=== PATIENT | male | born 1955 | race Caucasian/White ===

== ENCOUNTER 2021-10-26 19:42 | Emergency (ER) | payer MEDICARE, BC, SELFPAY ==
[2021-10-26 19:44] VITALS: BP 77/50; PULSE 43; RESP 19; TEMP 36.5; O2SAT 98; BMI 25.5
--- NOTE | 2021-10-26 19:51 | ED.RN ---
ECG IN PROGRESS
[2021-10-26 20:11] VITALS: BP 82/43; PULSE 41; RESP 20; O2SAT 97
--- NOTE | 2021-10-26 20:13 | CT_ITS ---
INDICATION: TRAUMA EXAMINATION: CT BRAIN - CT Head or Brain W/O Contrast Injection TECHNIQUE: Multiple axial images were obtained of the head without intravenous contrast. A radiation dose optimization technique was used for this scan. IV Contrast dosage and agent: None. RADIATION DOSAGE (If Supplied By Facility): CTDIvol = ( 44.99 ) mGy, DLP = ( 931.09 ) mGycm COMPARISON: None FINDINGS: HEMISPHERES: 1. There is severe hydrocephalus with enlargement of the lateral ventricles, third ventricle, cerebral aqueduct and fourth ventricle. No obstructing masses. No transependymal CSF migration however chronic thinning of the hemispheric parenchyma in the parietal and occipital lobes bilaterally. 2. 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 3. No intraparenchymal mass, hemorrhage, or acute territorial infarct. No areas of intra-axial intraventricular or extra-axial hemorrhage.. 4. No intraparenchymal mass, hemorrhage, or acute territorial infarct. CEREBELLUM - BRAINSTEM: The cerebellum, brainstem, basilar and suprasellar cisterns have normal configuration, prominence/dilatation of the fourth ventricle noted. No Chiari malformation. PITUITARY: Infundibulum and pituitary have normal configuration. Midline structures appear normal. CSF SPACES: Appropriate for age. No hydrocephalus. Basal cisterns are patent. VESSELS: 1. Moderate to extensive vascular calcifications in the cavernous carotid vessels. 2. No hyperdense vascular signs noted.. ORBITS AND PARANASAL SINUSES: 1. Normal appearance of the bony orbits. Normal appearance of the globes and retrobulbar soft tissues.. 2. Paranasal sinuses are clear. BONY ELEMENTS: Bony elements of the cranial vault, facial skeleton and skull base have normal appearance. SCALP AND SOFT TISSUES: Normal appearance of the soft tissues of the scalp and the visualized face OTHER: None ASPECTS Score for Acute Strokes: 10 CT/Brain/Head without Contrast IMPRESSION: 1. Marked supratentorial and infratentorial ventriculomegaly consistent with a chronic compensated communicating hydrocephalus. No transependymal CSF migration noted. 2. 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 3. No mass, hemorrhage, or acute territorial infarct. 4. No intracranial evidence of acute traumatic injury. 5. No cranial facial fractures noted. Electronically Signed: Ebenezer Tafoya MD at 21:00 EDT ,
--- NOTE | 2021-10-26 20:13 | EKG12_ITS ---
Test Reason : unresponsive Blood Pressure : / mmHG Vent. Rate : 043 BPM Atrial Rate : 043 BPM P-R Int : 192 ms QRS Dur : 106 ms QT Int : 526 ms P-R-T Axes : 057 063 061 degrees QTc Int : 444 ms Marked sinus bradycardia Abnormal ECG Confirmed by CLAUDIA CHASE, ROBERTO ([id number]), magazine editor MT GRAYSON ([id number]) on 10/28/2021 2:04:24 PM Referred By: Confirmed By:ROBERTO TAYLOR MD
--- NOTE | 2021-10-26 20:13 | CT_ITS ---
INDICATION: TRAUMA EXAMINATION: CT CERVICAL SPINE - CT Spine Cervical W/O Contrast Injection TECHNIQUE: Helically acquired images were obtained of the cervical spine. 2D reformatted images were reviewed. A radiation dose optimization technique was used for this scan. IV Contrast dosage and agent: None. COMPARISON: None. FINDINGS: VERTEBRAE: Vertebral body height and alignment are maintained, marginal osteophyte formation throughout the cervical spine without evidence of fracture or subluxation. Normal appearance the odontoid process and alignment of the craniocervical junction. DISCS and SPINAL CANAL: Mild disc space narrowing marginal osteophyte formation throughout cervical spine, no evidence of acute disc herniations however. There is significant chronic narrowing of the spinal canal at the C3-4 level which appears to be narrowed to approximately 5 mm. Broad-based disc bulges and chronic protrusions at remaining levels. Multilevel foraminal narrowing due to facet and uncovertebral joint hypertrophic changes. No acute bony changes however noted. NECK SOFT TISSUES: No prevertebral soft tissue swelling. There is no cervical adenopathy. LUNG APICES: Clear. CT/Spine Cervical without Contras IMPRESSION: 1. Multilevel cervical spondylosis facet arthrosis and uncovertebral joint hypertrophic changes. Chronic appearing disc bulge/protrusion and osteophytes are noted with areas of chronic canal narrowing. 2. No evidence however of fracture or acutely acquired canal stenosis. 3. Multilevel foraminal narrowing due to chronic facet and uncovertebral joint changes. Electronically Signed: Ebenezer Tafoya MD at 21:11 EDT ,
[2021-10-26] MEDS: 0.9% Normal Saline 1,000 ML 1000 ML IV ×2 (20:15→21:23)
[2021-10-26 20:31] LABS: Bacteria 0 SEEN /hpf (None Seen); Mucous, Urine 0 SEEN /hpf (<or=2+); Red Blood Cells-Urine 0 SEEN /hpf (0-5); Squamous Epithelial Cells - UA 0 SEEN /hpf (0-5); White Blood Cells 0 SEEN /hpf (0-5)
[2021-10-26 20:32] LABS: Absolute Lymphocyte Count 2.96 X10^3/uL (0.83-4.51); Absolute Neutrophil Count 6.8 X10^3/uL (2.0-7.7); Basophil# 0.09 X10^3/uL; Basophil% 0.8 % (0-1); Eosinophil# 0.74 X10^3/uL; Eosinophils% 6.5 % (0-5); Hemoglobin 10.5 g/dL (13.0-16.5); Lymphocyte # 2.96 X10^3/ul (0.83-4.51); Lymphocyte % 25.9 % (19-41); Mean Corp Hgb Conc 33.9 g/dL (32-36); Mean Corpuscular Hgb 30.3 pg (27.0-32.0); Mean Corpuscular Volume 89.6 fL (80-94); Mean Platelet Vol. 9.5 fl (6.2-12.0); Monocyte# 0.82 X10^3/uL; Monocyte% 7.2 % (0-10); NRBC Flagged by Analyzer 0 % (0-5); Neutrophil # 6.78 X10^3/uL (2.7-7.7); Neutrophil % 59.3 % (47-70); Platelet Count 272 K/mm3 (150-450); RBC Distribution Width CV 11.9 % (11.6-14.6); RBC Distribution Width SD 38.8 fl (35.1-43.9); Red Blood Count 3.46 M/mm3 (4.6-6.2); White Blood Count 11.4 K/mm3 (4.4-11.0)
[2021-10-26 20:36] LABS: Color, Urine Yellow (Yellow); Glucose, Dipstick Normal (Normal); Ketone-Dipstick Negative (Negative); Leukocyte Esterase-Dipstick Negative /ul (Negative); Nitrite-Dipstick Negative (Negative); Occult Blood-Urine Negative /ul (Negative); Protein-Dipstick Negative (Negative); Specific Gravity, Urine 1.015 (1.002-1.030); Urine Bilirubin Dipstick Negative (Negative); Urine Clarity Clear (Clear); Urine Urobilinogen Normal (Normal)
--- NOTE | 2021-10-26 20:36 | RAD_ITS ---
INDICATION: TRAUMA EXAMINATION/TECHNIQUE: X-RAY - XR Chest 1 View COMPARISON: None. FINDINGS: LIFE-SUPPORT AND LINES: 1. None HEART AND VESSELS: The cardiac silhouette, pulmonary vasculature have normal appearance. No evidence of congestive failure. LUNGS AND PLEURAL SPACES: Lungs are clear. No focal infiltrate, consolidation or effusions. No evidence of pneumothorax. No pulmonary mass is noted. MEDIASTINUM AND HILAR REGIONS: No masses adenopathy noted. No areas of calcification. Visualized upper airway is normal in position. BONY ELEMENTS: Scoliotic curvature of thoracic spine is noted. RAD/Chest 1 View (Portable) IMPRESSION: 1. No evidence of acute cardiopulmonary process Electronically Signed: Ebenezer Tafoya MD at 20:50 EDT ,
[2021-10-26 20:45] LABS: ALB/GLOB Ratio 1.2 RATIO (0.9-2.4); AST(SGOT) 23 U/L (15-37); Alanine Aminotransfer ALT/SGPT 25 U/L (16-61); Albumin, Serum 3.6 g/dL (3.2-5.0); Alkaline Phosphatase 48 U/L (45-117); Anion Gap 10 (5-15); BUN 15 mg/dL (7-18); BUN/Creat Ratio 15.4 RATIO (10-20); CPK Total, Creatine Kinase 135 U/L (39-308); Calcium,Total 8.5 mg/dL (8.5-10.1); Chloride 93 mmol/L (98-107); Creatinine, Serum 0.97 mg/dL (0.70-1.30); EST Glomerular Filtration Rate 82 mL/min (>60); Est Glom Filt Rate - Afr Amer 99 mL/min (>60); Estimated Creatinine Clearance 70.04 ml/min; Globulin 2.9 g/dL (2.2-4.2); Glucose 92 mg/dL (74-106); International Normalized Ratio 1.1; Potassium 3.3 mmol/L (3.5-5.1); Protein, Total 6.5 g/dL (6.4-8.2); Sodium Level 128 mmol/L (136-145); Troponin-I HS 5 pg/mL (3.0-78.0)
[2021-10-26 20:52] LABS: Lactic Acid 2.3 mmol/L (0.4-1.9)
[2021-10-26 20:53] VITALS: BP 94/54; PULSE 41; RESP 19; O2SAT 100
[2021-10-26 21:50] VITALS: BP 105/60; PULSE 44; RESP 17; O2SAT 99
--- NOTE | 2021-10-26 21:51 | ED.VIS.FALL ---
HPI HPI - Fall History of Present Illness Chief Complaint: Fall Informant: patient and EMS Narrative Narrative: Portably the patient states that he sustained a fall when he tripped in the yard and hit his head on the ground. He was found laying on the ground. EMS notes he was hypotensive and bradycardic. Patient states his head and his neck hurt. He was placed in a c-collar. Patient does not know what his heart rate or blood pressure typically runs. He states that he has no significant medical problems. He notes that he has been drinking beer today. He believes his tetanus is up-to-date. He tells me that his fingertips and toes are tingling. He denies any paresthesias of the hands forearms arms or legs. Denies any loss of sensation. He states he is not on any blood thinners. Tetanus Immunization: 5-10 years PFS PFS Medical History no medical history no medical history Home Medications chlorthalidone 25 mg tablet 1 tab PO DAILY 10/26/21 [History Last Taken Unknown] diclofenac sodium 75 mg tablet,delayed release 1 tab PO BID 10/26/21 [History Last Taken Unknown] losartan 100 mg tablet 1 tab PO DAILY 10/26/21 [History Last Taken Unknown] metoprolol tartrate 100 mg tablet (Lopressor) 100 mg PO BID 10/26/21 [History Last Taken Unknown] simvastatin 40 mg tablet 1 tab PO QHS 10/26/21 [History Last Taken Unknown] spironolactone 50 mg tablet 1 tab PO DAILY 10/26/21 [History Last Taken Unknown] verapamil 120 mg tablet,extended release 120 mg PO DAILY 10/26/21 [History Last Taken Unknown] Allergy/AdvReac Type Severity Reaction Status Date / Time Penicillins [PCN] Allergy NEEDS Verified 10/26/21 19:49 FOLLOW-UP Social History (Updated 10/26/21 @ 21:[address] Neftali Dan, DO) Smoking Status: Former smoker alcohol intake: current substance use type: does not use EXAM Physical Exam Narrative Exam Narrative: Patient smells of stale beer. Const Vital Signs: 10/26/21 19:44 10/26/21 19:51 10/26/21 20:11 Temperature 97.7 F L Temperature Source Temporal Pulse Rate 43 L 41 L Respiratory Rate 19 H 20 H Respiratory Effort Short of Breath Blood Pressure 77/50 L 82/43 L Blood Pressure Mean 59 56 Pulse Ox 98 97 Oxygen Delivery Method Room Air Room Air Room Air 10/26/21 20:53 10/26/21 21:50 Temperature Temperature Source Pulse Rate 41 L 44 L Respiratory Rate 19 H 17 Respiratory Effort Blood Pressure 94/54 L 105/60 Blood Pressure Mean 67 75 Pulse Ox 100 99 Oxygen Delivery Method Room Air Room Air Positive well nourished and well developed General Appearance ED: well developed HEENT Reports normocephalic and moist mucous membranes HEENT Narrative: There is abrasions of the forehead and nose. No bony depressions. Eyes PERRL and EOMs intact bilaterally Neck no lymphadenopathy, supple and no JVD Neck Narrative: She does and cervical spine precaution Resp normal respiratory effort and clear to auscultation bilaterally Cardio regular rate, regular rhythm and no murmurs GI normal to inspection, nondistended, normoactive bowel sounds and non-tender Palpation: soft Back/Spine no CVA tenderness and normal ROM Extremity normal to inspection General Extremety ED: Negative for edema General Extremity: Negative for edema Neuro oriented x3 and CN's II-XII intact bilaterally Neuro Narrative: Patient complains of loss of sensation to light touch and vibration of his extremities trunk and legs. I am able to get him to wiggle his toes and have some movement of his fingers. There is basically no movement against gravity including of the trunk. [place] Coma Scale: document GCS findings Spontaneous Obeys Commands Oriented 15 Sensorium / Orientation: alert Sensory Exam: sensory level loss detected Psych mental status grossly normal Mood & Affect: Negative for depressed or tearful Skin no rashes or lesions noted MDM MDM MDM Narrative Medical decision making narrative: Basic blood work showed a white count 11.4 hemoglobin 10.5. I do not have old labs to compare these to. His sodium is 128 most likely due to beer use. Lactic acid is slightly elevated at 2.3. Urinalysis is negative. Alcohol level 102. CT of the cervical spine shows no acute fracture. CT of the brain demonstrates acute ventriculomegaly consistent with chronic compensated communicating hydrocephalus. Thinning of the brain parenchyma involving the occipital and parietal lobes consistent with chronic compression. No obvious intracranial hemorrhage or fractures noted. Patient received IV fluids. Blood pressures up to 105/60. Patient continued to have neck pain and given Toradol and [place]. He continues to have difficulty with sensation and motor. I worried about a potential spinal cord injury. I spoke with [facility] traumatologist Dr. Ferrell and the patient will be transferred there. Lab Data Attestation: I reviewed the patient's lab results. Labs: Laboratory Results - last 24 hr 10/26/21 10/26/21 10/26/21 20:01 20:01 20:01 WBC 11.4 H RBC 3.46 L Hgb 10.5 L Hct 31.0 L MCV 89.6 MCH 30.3 MCHC 33.9 RDW Std Deviation 38.8 RDW Coeff of Janki 11.9 Plt Count 272 MPV 9.5 Immature Gran % (Auto) 0.300 Neut % (Auto) 59.3 Lymph % (Auto) 25.9 [place] % (Auto) 7.2 Eos % (Auto) 6.5 H Baso % (Auto) 0.8 Absolute Neuts (auto) 6.8 Absolute Lymphs (auto) 2.96 Nucleated RBC % 0 PT 14.0 INR 1.1 APTT 29.0 Sodium 128 L Potassium 3.3 L Chloride 93 L Carbon Dioxide 25.0 Anion Gap 10 BUN 15 Creatinine 0.97 Estim Creat Clear Calc 70.04 Est GFR (MDRD) Af Amer 99 Est GFR (MDRD) Non-Af 82 BUN/Creatinine Ratio 15.4 Glucose 92 Lactic Acid Calcium 8.5 Total Bilirubin 0.40 AST 23 ALT 25 Alkaline Phosphatase 48 Total Creatine Kinase 135 Troponin I High Sens 5 Total Protein 6.5 Albumin 3.6 Globulin 2.9 Albumin/Globulin Ratio 1.2 Urine Color Urine Clarity Urine pH Ur Specific Anchor Urine Protein Urine Glucose (UA) Urine Ketones Urine Occult Blood Urine Nitrite Urine Bilirubin Urine Urobilinogen Ur Leukocyte Esterase Urine RBC Urine WBC Ur Squamous Epith Cells Urine Bacteria Urine Mucus Ethyl Alcohol 10/26/21 10/26/21 10/26/21 20:01 20:01 20:25 WBC RBC Hgb Hct MCV MCH MCHC RDW Std Deviation RDW Coeff of Janki Plt Count MPV Immature Gran % (Auto) Neut % (Auto) Lymph % (Auto) [place] % (Auto) Eos % (Auto) Baso % (Auto) Absolute Neuts (auto) Absolute Lymphs (auto) Nucleated RBC % PT INR APTT Sodium Potassium Chloride Carbon Dioxide Anion Gap BUN Creatinine Estim Creat Clear Calc Est GFR (MDRD) Af Amer Est GFR (MDRD) Non-Af BUN/Creatinine Ratio Glucose Lactic Acid 2.3 H* Calcium Total Bilirubin AST ALT Alkaline Phosphatase Total Creatine Kinase Troponin I High Sens Total Protein Albumin Globulin Albumin/Globulin Ratio Urine Color Yellow Urine Clarity Clear Urine pH 6.0 Ur Specific Anchor 1.015 Urine Protein Negative Urine Glucose (UA) Normal Urine Ketones Negative Urine Occult Blood Negative Urine Nitrite Negative Urine Bilirubin Negative Urine Urobilinogen Normal Ur Leukocyte Esterase Negative Urine RBC 0 SEEN Urine WBC 0 SEEN Ur Squamous Epith Cells 0 SEEN Urine Bacteria 0 SEEN Urine Mucus 0 SEEN Ethyl Alcohol 102.0 Radiography Diagnostic Testing: Clinical Impression(s) from Imaging Studies Brain CT 10/26/21 20:13 IMPRESSION: 1. Marked supratentorial and infratentorial ventriculomegaly consistent with a chronic compensated communicating hydrocephalus. No transependymal CSF migration noted. 2. 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 3. No mass, hemorrhage, or acute territorial infarct. 4. No intracranial evidence of acute traumatic injury. 5. No cranial facial fractures noted. Electronically Signed: Ebenezer Tafoya MD at 21:00 EDT , Cervical Spine CT 10/26/21 20:13 IMPRESSION: 1. Multilevel cervical spondylosis facet arthrosis and uncovertebral joint hypertrophic changes. Chronic appearing disc bulge/protrusion and osteophytes are noted with areas of chronic canal narrowing. 2. No evidence however of fracture or acutely acquired canal stenosis. 3. Multilevel foraminal narrowing due to chronic facet and uncovertebral joint changes. Electronically Signed: Ebenezer Tafoya MD at 21:11 EDT , Chest X-Ray 10/26/21 20:36 IMPRESSION: 1. No evidence of acute cardiopulmonary process Electronically Signed: Ebenezer Tafoya MD at 20:50 EDT , EKG Initial EKG: Attestation: I personally reviewed and interpreted this EKG as follows: Comments: Sinus bradycardia with a ventricular rate of 43 bpm. Critical Care Time Critical Care Time: Yes Critical care time (excluding procedures): 30-74 minutes (35 min), Including time spent:, Discussing w/Patient &/or Family/Supervisor Dental Laboratory, Discussing w/Consultants, Arranging Admission or Transfer and Performing Direct Patient Care at Bedside Discharge Plan Triage Chief Complaint: Fall ED Provider: Neftali Dan Dx/Rx/DC Orders Clinical Impression: Alcohol intoxication, Fall, Head injury, Acute hypotension, Abrasion of face, Chronic communicating hydrocephalus, Acute cervical myofascial strain, Bradycardia, sinus, Spinal cord injury Instructions: ED Abrasion, ED Alcohol Intoxication Prescriptions: No Action metoprolol tartrate [Lopressor] 100 mg tablet 100 mg PO BID Label Comments: TAKE 1 TABLET BY MOUTH TWICE DAILY verapamil 120 mg tablet extended release 120 mg PO DAILY Label Comments: TAKE 1 TABLET BY MOUTH IN THE MORNING losartan 100 mg tablet 1 tab PO DAILY Label Comments: TAKE 1 TABLET BY MOUTH ONCE DAILY simvastatin 40 mg tablet 1 tab PO QHS Label Comments: TAKE 1 TABLET BY MOUTH DAILY AT BEDTIME spironolactone 50 mg tablet 1 tab PO DAILY Label Comments: TAKE 1 TABLET BY MOUTH DAILY diclofenac sodium 75 mg tablet,delayed release (DR/EC) 1 tab PO BID Label Comments: TAKE 1 TABLET BY MOUTH TWICE DAILY chlorthalidone 25 mg tablet 1 tab PO DAILY Label Comments: TAKE 1 TABLET BY MOUTH EVERY DAY Primary Care Provider: Carlos Dan Referrals: Carlos Dan MD [Primary Care Provider] - As soon as possible Disposition Disposition: Acute Care Hospital Discharge Location: [facility]
[2021-10-26] MEDS: Ketorolac 30 MG/ML Syringe IV (22:25)
[2021-10-26] MEDS: HYDROcodone Bitartrate/Apap 5/325 Tablet PO (22:26)
[2021-10-26 23:49] VITALS: BP 101/54; PULSE 44; RESP 12; TEMP 36.6; O2SAT 98
[2021-10-27 00:03] VITALS: BP 105/60; PULSE 44; RESP 17; TEMP 36.6; O2SAT 99
[2021-10-27 00:20] LABS: Reflex Lactate? Y
== END 2021-10-27 00:19 | disposition short-term general hospital (02) ==
PROVIDERS: Emergency Provider Emergency Medicine; PCP Family Medicine; Visit Provider Emergency Medicine
DX: S16.1XXA Strain of muscle, fascia and tendon at neck level, initial encounter (principal); G91.0 Communicating hydrocephalus; F10.129 Alcohol abuse with intoxication, unspecified; S00.81XA Abrasion of other part of head, initial encounter; S00.31XA Abrasion of nose, initial encounter; Y90.5 Blood alcohol level of 100-119 mg/100 ml; W18.09XA Striking against other object with subsequent fall, initial encounter; Y92.007 Garden or yard of unspecified non-institutional (private) residence as the place of occurrence of the external cause; R00.1 Bradycardia, unspecified; I95.9 Hypotension, unspecified; Z79.899 Other long term (current) drug therapy; Z87.891 Personal history of nicotine dependence
CPT/HCPCS: 70450; 71045; 72125; 80053; 81001; 82077; 82550; 83605; 84484; 85025; 85610; 85730; 93005; 96361; 96374; 96375; 99285; J7030; A4216